=== PATIENT | male | born 1980 | race Asian ===

== ENCOUNTER 2017-03-02 15:29 | Inpatient (IN) | payer OTHER ==
[~2017-03-02] VITALS: Ht 175.3 cm; Wt 121.6 kg
[2017-03-02 17:54] LABS: BASOPHIL % 0.5 % (0-2); PLATELET COUNT 244 x10^3mcL (130-400)
[2017-03-02 18:00] LABS: CALCIUM 8.4 mg/dL (8.5-10.1); CARBON DIOXIDE 25.2 mmol/L (21-32); CHLORIDE SERUM 95 mmol/L (98-107); CREATININE SERUM 0.9 mg/dL (0.7-1.3); GFR1 > 60 mL/min; GLUCOSE SERUM 187 mg/dL (74-106); POTASSIUM SERUM 3.7 mmol/L (3.5-5.1); SODIUM SERUM 131 mmol/L (136-145)
[2017-03-02 18:05] LABS: ALBUMIN 3.1 g/dL (3.4-5.0); ALKALINE PHOSPHATASE 83 U/L (46-116); ALT/SGPT 30 U/L (16-63); AST/SGOT 12 U/L (15-37); BILIRUBIN TOTAL 0.92 mg/dL (0.20-1.00); TOTAL PROTEIN, SERUM 7.2 g/dL (6.4-8.2)
[2017-03-02 21:43] LABS: CHOLESTEROL/HDL RATIO 4.4
[2017-03-02 21:46] LABS: T3 TOTAL 0.81 ng/mL
[2017-03-02 21:53] LABS: FREE T4 1.69 ng/dL (0.76-1.46); FREE THYROXINE INDEX 3.7 ug/dL (1.4-4.5)
[2017-03-02 22:31] VITALS: BP 126/78
[2017-03-03 05:41] VITALS: BP 120/77
[2017-03-03 06:41] LABS: PLATELET COUNT 242 x10^3mcL (130-400); RED CELL DISTRIBUTION WIDTH 12.9 % (11.5-14.5)
[2017-03-03 06:55] LABS: CALCIUM 8.2 mg/dL (8.5-10.1); CARBON DIOXIDE 28.2 mmol/L (21-32); CHLORIDE SERUM 98 mmol/L (98-107); CREATININE SERUM 0.9 mg/dL (0.7-1.3); GFR1 > 60 mL/min; GLUCOSE SERUM 144 mg/dL (74-106); PHOSPHOROUS 3.3 mg/dL (2.5-4.9); POTASSIUM SERUM 3.9 mmol/L (3.5-5.1); SODIUM SERUM 131 mmol/L (136-145)
[2017-03-03 09:50] VITALS: BP 118/77
[2017-03-03 10:42] LABS: BAND NEUTROPHIL 1 % (0-10); BASOPHIL 0 % (0-2); MONOCYTE 6 % (0-7); SEGMENTED NEUTROPHILS 82 % (37-75)
[2017-03-03 10:43] LABS: PLATELET MORPHOLOGY PLATELETS NORMAL
[2017-03-03 13:35] LABS: microscopic required? NO
[2017-03-03 13:43] LABS: urine erythrocyte NEGATIVE (NEGATIVE)
[2017-03-03 13:48] VITALS: BP 123/79
[2017-03-03 18:10] VITALS: BP 114/77
[2017-03-03 19:14] LABS: AMPHETAMINE QUAL UR NONE DETECTED (NEG <=1000)
[2017-03-03 21:00] VITALS: BP 133/82
[2017-03-04 06:55] VITALS: BP 117/75
[2017-03-04 09:51] VITALS: BP 118/73
[2017-03-04 10:57] LABS: BASOPHIL % 0.1 % (0-2); PLATELET COUNT 212 x10^3mcL (130-400); RED CELL DISTRIBUTION WIDTH 13.4 % (11.5-14.5)
[2017-03-04 11:08] LABS: CALCIUM 8.2 mg/dL (8.5-10.1); CHLORIDE SERUM 101 mmol/L (98-107); CREATININE SERUM 0.8 mg/dL (0.7-1.3); GFR1 > 60 mL/min; GLUCOSE SERUM 107 mg/dL (74-106); POTASSIUM SERUM 3.9 mmol/L (3.5-5.1); SODIUM SERUM 135 mmol/L (136-145)
[2017-03-04 12:40] VITALS: BP 110/70
[2017-03-04 17:52] VITALS: BP 111/72
[2017-03-04 21:23] VITALS: BP 123/74
[2017-03-05] VITALS (7 sets, daily range): BP systolic 100–134; BP diastolic 54–83
[2017-03-05 06:14] LABS: BASOPHIL % 0.1 % (0-2); PLATELET COUNT 205 x10^3mcL (130-400)
[2017-03-05 06:20] LABS: CARBON DIOXIDE 27.2 mmol/L (21-32); CHLORIDE SERUM 101 mmol/L (98-107); CREATININE SERUM 0.9 mg/dL (0.7-1.3); GFR1 > 60 mL/min; GLUCOSE SERUM 113 mg/dL (74-106); POTASSIUM SERUM 3.7 mmol/L (3.5-5.1); SODIUM SERUM 137 mmol/L (136-145)
[2017-03-06 05:57] VITALS: BP 105/67
[2017-03-06 05:57] LABS: BASOPHIL % 0.4 % (0-2); PLATELET COUNT 213 x10^3mcL (130-400); RED CELL DISTRIBUTION WIDTH 13.2 % (11.5-14.5)
[2017-03-06 06:28] LABS: CALCIUM 8.2 mg/dL (8.5-10.1); CARBON DIOXIDE 29.8 mmol/L (21-32); CHLORIDE SERUM 104 mmol/L (98-107); CREATININE SERUM 0.8 mg/dL (0.7-1.3); GFR1 > 60 mL/min; GLUCOSE SERUM 119 mg/dL (74-106); POTASSIUM SERUM 4.5 mmol/L (3.5-5.1); SODIUM SERUM 139 mmol/L (136-145)
[2017-03-06 08:54] VITALS: BP 113/69
[2017-03-06 18:03] VITALS: BP 99/64
[2017-03-07 06:24] LABS: BASOPHIL % 0.5 % (0-2); PLATELET COUNT 188 x10^3mcL (130-400); RED CELL DISTRIBUTION WIDTH 12.9 % (11.5-14.5)
[2017-03-07 06:28] VITALS: BP 105/69
[2017-03-07 06:29] LABS: CALCIUM 7.8 mg/dL (8.5-10.1); CARBON DIOXIDE 27.8 mmol/L (21-32); CHLORIDE SERUM 105 mmol/L (98-107); CREATININE SERUM 0.7 mg/dL (0.7-1.3); GFR1 > 60 mL/min; GLUCOSE SERUM 100 mg/dL (74-106); MAGNESIUM 1.8 mg/dL (1.8-2.4); PHOSPHOROUS 4.1 mg/dL (2.5-4.9); POTASSIUM SERUM 3.8 mmol/L (3.5-5.1); SODIUM SERUM 139 mmol/L (136-145)
[2017-03-07 08:52] VITALS: Ht 175.3 cm; Wt 121.6 kg
[2017-03-07 09:47] VITALS: BP 105/65
[2017-03-07 18:01] VITALS: BP 101/62
[2017-03-08 05:46] VITALS: BP 119/77
[2017-03-08 06:42] LABS: BASOPHIL % 1.2 % (0-2); PLATELET COUNT 238 x10^3mcL (130-400); RED CELL DISTRIBUTION WIDTH 13.1 % (11.5-14.5)
[2017-03-08 09:18] VITALS: BP 109/67
[2017-03-08] MEDS ORDERED: CLEOCIN HCL300 MG PO ×2 (13:04→15:52)
[2017-03-08 14:37] VITALS: BP 109/67
[2017-03-08] MEDS ORDERED: LEVAQUIN750 MG PO (15:50)
[2017-03-08] MEDS ORDERED: LAC PO (15:50)
[2017-03-08] MEDS ORDERED: DOC-Q-LACE100 MG PO (15:52)
[2017-03-08] MEDS ORDERED: PERCOCET1 TA5 PO (15:53)
[2017-03-08] MEDS ORDERED: METFORMIN HCL500 MG PO (15:53)
[2017-03-08] MEDS ORDERED: BLOOD GLUCOSE1 EACH MC (15:55)
[2017-03-08] MEDS ORDERED: LANCETS1 EAC3 MC (15:55)
[2017-03-08] MEDS ORDERED: BLOOD GLUCOSE1 EAC3 MC (16:00)
[2017-03-08] MEDS ORDERED: LIPITOR20 MG PO (16:14)
[2017-03-08] MEDS ORDERED: ASPIR 8181 MG PO (16:14)
[2017-03-08 17:13] VITALS: BP 108/74
== END 2017-03-08 18:40 | disposition home or self-care (01) | DRG 853 ==
LOC: ED 15:29 → DU 20:39 → MU 20:39 → DU 21:41 → MU 03-05 16:16
PROVIDERS: Emergency Medicine; Family Medicine; Surgery; ADMIT Family Medicine
PROC: 0J950ZZ Drainage of Left Neck Subcutaneous Tissue and Fascia, Open Approach (ICD-10-PCS; principal; 2017-03-05 09:30)
DX: A41.9 Sepsis, unspecified organism (principal); E43 Unspecified severe protein-calorie malnutrition; L03.312 Cellulitis of back [any part except buttock and flank]; E87.1 Hypo-osmolality and hyponatremia; D68.69 Other thrombophilia; E11.65 Type 2 diabetes mellitus with hyperglycemia; E11.51 Type 2 diabetes mellitus with diabetic peripheral angiopathy without gangrene
CPT/HCPCS: 82962; 83880; 84439; J0295; J1956; J2175; J2250; J2270; J2405; J2704; J3010; J3490; J7030; J7120; Q0092